=== PATIENT | male | born 1990 ===

== ENCOUNTER 2021-11-08 15:37 | Outpatient (REF) | payer OTHER, SELFPAY ==
--- NOTE | ~2021-11-08 | XR_ITS ---
EXAMINATION: XR CHEST CLINICAL INFORMATION: Shortness of breath COMPARISON: None TECHNIQUE: 2 views of the chest were obtained. FINDINGS: No significant abnormality is noted involving the heart, lungs, mediastinum, bony thorax or soft tissues. XR/XR chest 2V IMPRESSION: Unremarkable examination.
== END 2021-11-08 15:38 | disposition home or self-care (01) ==
LOC: HO.HMGCX 15:37
PROVIDERS: Visit Provider Internal Medicine
DX: R06.02 Shortness of breath (principal); R07.9 Chest pain, unspecified
CPT/HCPCS: 71046

== ENCOUNTER 2023-03-01 09:45 | Outpatient (AMB) | payer OTHER, SELFPAY ==
--- NOTE | 2023-03-01 10:13 | MHC.OFFWIV ---
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 Patient Tobacco Use Status: Never used Tobacco Allergies amoxicillin Allergy (Mild, Verified 03/01/23 10:24) Hives HPI HPI Comments History of Present Illness Details 32-year-old male presents for low back pain. Patient was lifting a box spent over thought pop in his low back. He denies fevers chills IV DU history of cancer saddle anesthesia urinary or bowel symptoms. PFSH Social History Patient Tobacco Use Status: Never used Tobacco Review of Systems Const All systems reviewed & are unremarkable except as noted in HPI and below Reports as per HPI Musc Reports back pain Physical Exam Vital Signs: Last Vital Signs Temp 97.9 F 03/01/23 10:22 Pulse 68 03/01/23 10:22 BP 100/60 03/01/23 10:22 Pulse Ox 98 03/01/23 10:22 Oxygen Delivery Method Room Air 03/01/23 10:22 Const General: cooperative, no acute distress and alert Orientation/consciousness: patient oriented x3 Limitations: no limitations HEENT Head: Yes normal to inspection Ears: hearing grossly normal bilaterally and external ears normal General nose exam: Normal external nose present Eyes General: appearance normal, both eyes and all related structures Neck Neck: Yes normal visual inspection Chest Chest palpation & inspection: normal inspection of the chest Resp Effort & Inspection: normal respiratory effort, able to speak in complete sentences and no audible wheezes Auscultation: clear to auscultation bilaterally Cardio Rate: regular rate Rhythm: regular rhythm GI Inspection: Yes normal to inspection Palpation (GI): Soft to palpation and nontender Skin General skin exam: no rashes or lesions noted Neuro General: patient oriented x3 Psych Appearance: grossly normal Mental Status: mental status grossly normal Speech and movement: Normal speech and movement present Affect: normal affect Attitude: cooperative Thought process: Normal thought process present Thought content: Normal thought content present Assessment & Plan Assessment & Plan (1) Back pain: Code(s): M54.9 - Dorsalgia, unspecified Plan VSs. On exam patient presents alert and oriented no acute distress exam otherwise unremarkable note above. Patient's presentation as well as physical exam consistent with mechanical back pain recommend symptomatic treatment at this time re-evaluation should symptoms worsen or not improve. Discharge instructions, follow up and treatment are discussed with patient in my usual fashion. Alternatives in treatment are also discussed. The patient will return for worsening symptoms or as needed. Advised that any labs/imaging ordered will be followed up on and contact made if further treatment needed. Counseled that patient's condition may require further evaluation and/or treatment. Symptoms of concern for worsening disorder discussed in detail in my customary manner. Patient does verbalize understanding of the plan, there are no apparent barriers to communication. The patient is given the opportunity to ask questions and have them answered to his/her satisfaction Medications: New meloxicam 7.5 mg PO DAILY 10 tabs 0RF cyclobenzaprine 10 mg PO TID PRN 10 tabs 0RF muscle spasm lidocaine 5% leave on most painful area for up to 12 hrs 1 patch topical DAILY 15 ea 0RF Coding Level of Care Code Est Pt Level 3 (24954) Diagnoses Back pain M54.9
[2023-03-01 10:22] VITALS: BP 100/60; PULSE 68; TEMP 36.6; O2SAT 98
== END 2023-03-01 11:43 | disposition home or self-care (01) ==
PROVIDERS: Visit Provider Physician Assistant
DX: M54.9 Dorsalgia, unspecified (principal)
CPT/HCPCS: 99213